=== PATIENT | male | born 1950 | race Caucasian/White ===

== ENCOUNTER 2018-06-13 10:13 | Emergency (ER) | payer MEDICARE, OTHER ==
[2018-06-13] MEDS: HYDROCODONE/APAP (5/325) TAB PO (10:57)
== END 2018-06-13 11:58 | disposition home or self-care (01) ==
LOC: FTE 10:13
DX: S49.91XA Unspecified injury of right shoulder and upper arm, initial encounter (principal); W01.0XXA Fall on same level from slipping, tripping and stumbling without subsequent striking against object, initial encounter; Y92.89 Other specified places as the place of occurrence of the external cause; Z98.61 Coronary angioplasty status
CPT/HCPCS: 73030; 73030-RT; 99283-25

== ENCOUNTER 2018-06-14 16:50 | Emergency (ER) | payer MEDICARE, OTHER | END 2018-06-14 18:52 | disposition home or self-care (01) | LOC: FTE 16:50 | DX: M25.512 Pain in left shoulder (principal) | CPT/HCPCS: 99283 ==